=== PATIENT | male | born 1965 | race Caucasian/White ===

== ENCOUNTER 2020-12-26 11:59 | Emergency (ER) | payer BC, OTHER ==
[~2020-12-26] VITALS: Ht 182.8 cm; Wt 110.3 kg
--- NOTE | 2020-12-26 12:09 | ED General ---
General Chief Complaint: Dizziness/Syncope Stated Complaint: SYNCOPE History of Present Illness Date Seen by Provider: Dec 26, 2020 Time Seen by Provider: 12:05 Initial Comments 55-year-old male presents with a brief syncopal event that happened today while he was at work. Patient reports that he was outside working in the heat yesterday that yesterday afternoon he felt dizzy once a day. Ronda like the symptoms were worse if he stood up or moved. Patient reports he was at work today when he Ronda faint and had a brief syncopal event. He recalls events just prior and right after the syncope event. He denies any other symptoms such as chest pain, shortness of breath, fever, chills, headache, focal weakness, nausea vomiting. Patient with no symptoms upon arrival Allergies and Home Medications Allergies Coded Allergies: No Known Drug Allergies (Unverified , 12/26/20) Patient Home Medication List Home Medication List Reviewed: Yes Review of Systems Review of Systems Constitutional: No chills; dizziness; No fever EENTM: no symptoms reported Respiratory: No cough, No short of breath Cardiovascular: No chest pain, No edema, No palpitations; syncope Gastrointestinal: No abdominal pain, No nausea, No vomiting Genitourinary: no symptoms reported Musculoskeletal: no symptoms reported Psychiatric/Neurological: No Symptoms Reported Past Evyddzc-Jnqyoa-Rxulac Hx Past Med/Social Hx: Reviewed Nursing Past Med/Soc Hx Physical Exam Vital Signs Vital Signs - First Documented 12/26/20 12:02 Temp 36.6 Pulse 85 Resp 16 B/P (MAP) 169/89 (115) Pulse Ox 98 O2 Delivery Room Air Capillary Refill : Height, Weight, BMI Height: '" Weight: lbs. oz. kg; BMI Method: General Appearance: No Apparent Distress, WD/WN HEENT: PERRL/EOMI, Moist Mucous Membranes Neck: Non Tender, Supple Respiratory: Lungs Clear, Normal Breath Sounds Cardiovascular: Regular Rate, Rhythm, No Edema Gastrointestinal: Non Tender, Soft Back: No CVA Tenderness Extremity: Normal Capillary Refill, Normal Inspection, Normal Range of Motion Neurologic/Psychiatric: Alert, Oriented x3, No Motor/Sensory Deficits, Normal Mood/Affect, health workers II-XII Norm as Tested Skin: Normal Color, Warm/Dry Progress/Results/Core Measures Suspected Sepsis SIRS Temperature: Pulse: Respiratory Rate: Laboratory Tests 12/26/20 12:12: White Blood Count 8.0 Blood Pressure / Mean: Laboratory Tests 12/26/20 12:12: Creatinine 1.15, Platelet Count 271, Total Bilirubin 1.5H Results/Orders Lab Results Laboratory Tests Test 12/26/20 12:12 12/26/20 12:21 Range/Units White Blood Count 8.0 4.3-11.0 10^3/uL Red Blood Count 5.56 4.35-5.85 10^6/uL Hemoglobin 16.6 13.3-17.7 G/DL Hematocrit 48 40-54 % Mean Corpuscular Volume 86 80-99 FL Mean Corpuscular Hemoglobin 30 25-34 PG Mean Corpuscular Hemoglobin Concent 35 32-36 G/DL Red Cell Distribution Width 13.1 10.0-14.5 % Platelet Count 271 130-400 10^3/uL Mean Platelet Volume 10.6 H 7.4-10.4 FL Immature Granulocyte % (Auto) 0 % Neutrophils (%) (Auto) 61 42-75 % Lymphocytes (%) (Auto) 30 12-44 % Monocytes (%) (Auto) 7 0-12 % Eosinophils (%) (Auto) 1 0-10 % Basophils (%) (Auto) 1 0-10 % Neutrophils # (Auto) 4.8 1.8-7.8 X 10^3 Lymphocytes # (Auto) 2.4 1.0-4.0 X 10^3 Monocytes # (Auto) 0.6 0.0-1.0 X 10^3 Eosinophils # (Auto) 0.1 0.0-0.3 10^3/uL Basophils # (Auto) 0.1 0.0-0.1 10^3/uL Immature Granulocyte # (Auto) 0.0 0.0-0.1 10^3/uL Sodium Level 140 135-145 MMOL/L Potassium Level 3.7 3.6-5.0 MMOL/L Chloride Level 105 98-107 MMOL/L Carbon Dioxide Level 23 21-32 MMOL/L Anion Gap 12 5-14 MMOL/L Blood Urea Nitrogen 14 7-18 MG/DL Creatinine 1.15 0.60-1.30 MG/DL Estimat Glomerular Filtration Rate > 60 BUN/Creatinine Ratio 12 Glucose Level 108 H 70-105 MG/DL Calcium Level 9.7 8.5-10.1 MG/DL Corrected Calcium 9.5 8.5-10.1 MG/DL Magnesium Level 2.0 1.6-2.4 MG/DL Total Bilirubin 1.5 H 0.1-1.0 MG/DL Aspartate Amino Transf (AST/SGOT) 20 5-34 U/L Alanine Aminotransferase (ALT/SGPT) 19 0-55 U/L Alkaline Phosphatase 54 40-136 U/L Troponin I < 0.30 <0.30 NG/ML C-Reactive Protein < 0.30 <0.50 MG/DL Total Protein 7.2 6.4-8.2 GM/DL Albumin 4.3 3.2-4.5 GM/DL Glucometer 103 70-110 MG/DL My Orders Orders - EARL,SADAF L DO Cbc With Automated Diff (12/26/20 12:09) Comprehensive Metabolic Panel (12/26/20 12:09) Magnesium (12/26/20 12:09) Ua Culture If Indicated (12/26/20 12:09) Accucheck Stat ONCE (12/26/20 12:09) Ed Iv/Invasive Line Start (12/26/20 12:09) Ekg Tracing (12/26/20 12:09) Monitor-Rhythm Ecg Trace Only (12/26/20 12:09) Troponin I Fs (12/26/20 12:09) Lactated Ringers (Lr 1000 Ml Iv Solution (12/26/20 12:11) Chest 1 View Ap/Pa Only (12/26/20 12:16) Crp Fs (12/26/20 12:12) Vital Signs/I&O 12/26/20 12:02 Temp 36.6 Pulse 85 Resp 16 B/P (MAP) 169/89 (115) Pulse Ox 98 O2 Delivery Room Air Capillary Refill : Progress Note : Progress Note Patient with negative labs EKG and exam. Discussed with him that syncope is often difficult to find the cause. Recommended he establish care with a primary care provider and has a cardiology outpatient follow-up. Patient voiced underst anding and agreement. Patient stable will be discharged ECG Initial ECG Impression Date: Dec 26, 2020 Initial ECG Impression Time: 12:03 Initial ECG Rhythm: Normal Sinus Initial ECG Intervals: Normal Initial ECG Impression: Normal Diagnostic Imaging Diagonstic Imaging: Xray Plain Films/CT/US/NM/MRI: chest Comments Date of Exam:12/26/20 CHEST 1 VIEW AP/PA ONLY EXAMINATION: Portable erect AP chest at 12:10 p.m. INDICATION: Syncope. There are no prior studies available for comparison. The heart size is within normal limits. The lungs are clear. There is no sign of failure, pneumonia or pleural effusion. The mediastinum is not widened. The osseous structures are intact. External cardiac monitoring electrodes are noted. IMPRESSION: There is no evidence for active disease. Departure Impression Primary Impression: Syncope Qualified Codes: R55 - Syncope and collapse Disposition: HOME, SELF-CARE Condition: Stable Departure-Patient Inst. Referrals: NO,LOCAL PHYSICIAN (PCP/Family) Primary Care Physician Patient Instructions: Syncope (Fainting) (DC) Add. Discharge Instructions: Please establish care with a primary care provider of your choice and follow-up with outpatient cardiology for further evaluation All discharge instructions reviewed with patient and/or family. Voiced understanding. SADAF EARL DO Dec 26, 2020 12:09
[2020-12-26] MEDS ORDERED: LACTATED RINGERS 1,000 ML IV STA (12:11)
[2020-12-26 12:25] LABS: HEMATOCRIT 48 % (40-54); HEMOGLOBIN 16.6 G/DL (13.3-17.7); MEAN CORPUSCULAR HEMOGLOBIN 30 PG (25-34); MEAN CORPUSCULAR HGB CONC 35 G/DL (32-36); MEAN CORPUSCULAR VOLUME 86 FL (80-99)
[2020-12-26 12:26] LABS: BASOPHILS # (AUTO) 0.1 10^3/uL (0.0-0.1); BASOPHILS % (AUTO) 1 % (0-10); EOSINOPHILS # (AUTO) 0.1 10^3/uL (0.0-0.3); EOSINOPHILS % (AUTO) 1 % (0-10); LYMPHOCYTES # (AUTO) 2.4 X 10^3 (1.0-4.0); LYMPHOCYTES % (AUTO) 30 % (12-44); MEAN PLATELET VOLUME 10.6 FL (7.4-10.4); MONOCYTES # (AUTO) 0.6 X 10^3 (0.0-1.0); MONOCYTES % (AUTO) 7 % (0-12); NEUTROPHILS # (AUTO) 4.8 X 10^3 (1.8-7.8); NEUTROPHILS % (AUTO) 61 % (42-75); PLATELET COUNT 271 10^3/uL (130-400)
--- NOTE | 2020-12-26 12:33 | Diagnostic Imaging Report ---
EXAMINATION: Portable erect AP chest at 12:10 p.m. INDICATION: Syncope. There are no prior studies available for comparison. The heart size is within normal limits. The lungs are clear. There is no sign of failure, pneumonia or pleural effusion. The mediastinum is not widened. The osseous structures are intact. External cardiac monitoring electrodes are noted. IMPRESSION: There is no evidence for active disease. Dictated by: Dictated on workstation # [id number]
[2020-12-26 12:46] LABS: ALKALINE PHOSPHATASE 54 U/L (40-136); BILIRUBIN,TOTAL 1.5 MG/DL (0.1-1.0); BUN/CREATININE RATIO 12; CALCIUM 9.7 MG/DL (8.5-10.1); CARBON DIOXIDE 23 MMOL/L (21-32); CHLORIDE 105 MMOL/L (98-107); CREATININE SERUM 1.15 MG/DL (0.60-1.30); GFR ESTIMATED > 60; GLUCOSE 108 MG/DL (70-105); POTASSIUM 3.7 MMOL/L (3.6-5.0); SODIUM 140 MMOL/L (135-145)
[2020-12-26 12:47] LABS: ALANINE AMINOTRANSFERASE 19 U/L (0-55); ALBUMIN 4.3 GM/DL (3.2-4.5); TOTAL PROTEIN 7.2 GM/DL (6.4-8.2)
[2020-12-26 13:29] VITALS: BP 133/87
[2020-12-26 13:30] LABS: BILIRUBIN,URINE NEGATIVE (NEGATIVE); CLARITY,URINE CLEAR; COLOR,URINE YELLOW; GLUCOSE, URINE (UA) NEGATIVE (NEGATIVE); KETONES,URINE NEGATIVE (NEGATIVE); LEUKOCYTE ESTERASE ,URINE NEGATIVE (NEGATIVE); NITRITE,URINE NEGATIVE (NEGATIVE); PROTEIN,URINE NEGATIVE (NEGATIVE)
[2020-12-26 13:31] LABS: BACTERIA,URINE NEGATIVE /HPF; WBC,URINE RARE /HPF
[2020-12-26] MEDS ORDERED: CETI10CA PO (13:57)
[2020-12-26] MEDS ORDERED: MULT-1061 PO (13:57)
[2020-12-26] MEDS ORDERED: Fish Oil (13:57)
[2020-12-26] MEDS ORDERED: Melatonin (13:57)
== END 2020-12-26 13:29 | disposition home or self-care (01) ==
LOC: ER FS 12:00
DX: R55 Syncope and collapse (principal)
CPT/HCPCS: 36415; 71045; 80053; 81000; 82947; 83735; 84484; 85025; 86141; 93005; 93041

== ENCOUNTER → 2021-02-15 | Outpatient (CLI) | payer SELFPAY ==
[~2021-02-15] MED LIST: CETI10CA PO; Fish Oil; MULT-1061 PO; Melatonin
--- NOTE | 2021-02-15 12:08 | Diagnostic Imaging Report ---
EXAMINATION: CT calcium scoring without contrast. TECHNIQUE: Multiple contiguous axial images were obtained through the chest without the use of intravenous contrast for purposes of calcium scoring. All CT scans use one or more of the following dose optimizing techniques: Automated exposure control, MA and/or KvP adjustment based on patient size and exam type or iterative reconstruction. HISTORY: FAMILY HX OF ISCHEMIC HEART DISEASE. COMPARISON: None available. FINDINGS: The calculated coronary artery calcium score is 1.0. There is no edema or pneumonia. No pleural effusion. No pneumothorax. No suspicious nodules. Heart size is normal. No pericardial effusion. Aorta is normal in caliber. There is no axillary or supraclavicular lymphadenopathy. There is no mediastinal lymphadenopathy. Limited views of the upper abdomen are unremarkable. There are no suspicious osseous lesions. IMPRESSION: 1. Calculated coronary artery calcium score of 1.0 placing the patient below the 25th percentile. Dictated by: Dictated on workstation # [id number]
== END ==
LOC: RAD FS 11:01
PROVIDERS: ATTEND Family Medicine
DX: Z82.49 Family history of ischemic heart disease and other diseases of the circulatory system (principal)
CPT/HCPCS: 75571

== ENCOUNTER → 2021-02-15 | Outpatient (CLI) | payer BC ==
[2021-02-15 08:17] LABS: CREATININE SERUM 1.19 MG/DL (0.60-1.30); POTASSIUM 4.1 MMOL/L (3.6-5.0)
[2021-02-15 08:18] LABS: ALBUMIN 4.2 GM/DL (3.2-4.5); BILIRUBIN,TOTAL 2.1 MG/DL (0.1-1.0); CALCIUM 9.4 MG/DL (8.5-10.1); TOTAL PROTEIN 7.3 GM/DL (6.4-8.2)
== END ==
LOC: LAB FS 07:02
PROVIDERS: ATTEND Family Medicine
DX: Z00.00 Encounter for general adult medical examination without abnormal findings (principal)
CPT/HCPCS: 36415; 80053; 80061; G0103; 84153

== ENCOUNTER 2021-03-13 05:35 | Outpatient (CLI) | payer BC ==
[~2021-03-13] VITALS: Ht 185.4 cm; Wt 111.1 kg
[2021-03-13] MEDS ORDERED: OMG1KC PO (13:06)
[2021-03-13] MEDS ORDERED: TMSL.4C PO (13:06)
== END 2021-03-13 14:14 | disposition home or self-care (01) ==
LOC: PREOP 05:35
PROVIDERS: ATTEND Surgery
DX: Z01.818 Encounter for other preprocedural examination (principal)

== ENCOUNTER 2021-03-20 06:51 | Day surgery (SDC) | payer BC ==
[~2021-03-20] VITALS: Ht 185.4 cm; Wt 111.1 kg
[~2021-03-20 06:51] MED LIST changes: +OMG1KC PO; +TMSL.4C PO
[2021-03-20 07:10] VITALS: BP 129/63
[2021-03-20] MEDS ORDERED: LACTATED RINGERS 1,000 ML IV ONE (07:10)
[2021-03-20] MEDS ORDERED: LACTATED RINGERS 1,000 ML IV STA (07:37)
[2021-03-20] MEDS ORDERED: MIDAZOLAM 2 MG/2 ML (VERSED) VIAL ONE (08:12)
[2021-03-20] MEDS ORDERED: PROPOFOL INJECTION 50 ML IV ONE (08:12)
[2021-03-20 08:45] VITALS: BP 119/78
--- NOTE | 2021-03-20 08:46 | Progress Note-Post Operative ---
Post-Operative Progess Note Surgeon (s)/Grounds Manager (s) Surgeon ALEXIS BIRCH DO Grounds Manager: Any [place] Pre-Operative Diagnosis Screening Colonoscopy Post-Operative Diagnosis Cecal polyp Diverticula int hemorrhoids Procedure & Operative Findings Date of Procedure 03/20/21 Procedure Performed/Findings Colonoscopy with hot bx PROCEDURE NOTE: After informed consent was obtained, the patient was brought to the endoscopy suite, placed in bed in left lateral decubitus position. He was administered IV sedation by the CAMPUS ADMINISTRATIVE ASSISTANT who then monitored his vitals the entire time, heart rate, blood pressure and pulse ox and the scope was inserted, pushed all the way to about 160 cm and pushed into the cecum, took a picture of appendiceal orifice and noted a polpy right next to the opening. Elected to do a hot biopsy of this and then took a picture of the ileo-cecal valve. Next started slowly withdrawing the scope insufflating to look circumferentially at the calvo; starting in the cecum, up the ascending colon (where I noted one small diverticula) to the hepatic flexure, then down the transverse colon. Continued to the splenic flexure and into the descending colon, down in the sigmoid (saw a couple more small diverticula through here) and then into the rectal vault and retroflexed the scope. Took picture of the internal hemorrhoids. The patient tolerated the procedure. He was recovered in endoscopy suite. Anesthesia Type IV sedation by CAMPUS ADMINISTRATIVE ASSISTANT Estimated Blood Loss Estimated blood loss (mL): scant Specimens/Packing Specimens Removed cecal polyp ALEXIS BIRCH DO Mar 20, 2021 08:46
--- NOTE | 2021-03-20 08:47 | Endoscopy Discharge Instruct ---
Endo Procedure/Findings Findings 1.: Polyp 2.: Diverticulosis 3.: Internal Hemorrhoids Discharge Instructions - Activity: You might feel a little sleepy until tomorrow. This is due to the medicine you received to relax you. Until tomorrow, you should: NOT drive a car, operate machinery or power tools. NOT drink any alcoholic beverages. NOT make any important decisions or sign importortant papers. Do not return to work until tomorrow, unless otherwise instructed. Resume previous activities tomorrow. Diet: Start by taking liquids. If you tolerate liquids, advance to solid food. 1.: Colonscopy in 5 years Notify Physician - If you experience excessive bleeding, unusual abdominal pain, fever, or chest pain, contact your doctor immediately. ALEXIS BIRCH DO Mar 20, 2021 08:47
[2021-03-20 08:50] VITALS: BP_SYST 120; BP_SYST 128; BP_DIAS 74; BP_DIAS 81
[2021-03-20 09:13] VITALS: BP 138/94
[2021-03-20 09:14] VITALS: BP 138/94
--- NOTE | 2021-03-20 13:08 | Anesthesia-General Post-Op ---
MAC Patient Condition Mental Status/LOC: Same as Preop Cardiovascular: Satisfactory Nausea/Vomiting: Absent Respiratory: Satisfactory Pain: Controlled Complications: Absent Post Op Complications Complications None Follow Up Care/Instructions Patient Instructions None needed. Anesthesiology Discharge Order Discharge Order Patient is doing well, no complaints, stable vital signs, no apparent adverse anesthesia problems. No complications reported per nursing. CELINE SEALS CRNA Mar 20, 2021 13:08
== END 2021-03-20 09:19 | disposition home or self-care (01) ==
LOC: ENDO 06:51
PROVIDERS: ATTEND Surgery
DX: Z12.11 Encounter for screening for malignant neoplasm of colon (principal); D12.0 Benign neoplasm of cecum; K57.30 Diverticulosis of large intestine without perforation or abscess without bleeding; K64.8 Other hemorrhoids; Z80.42 Family history of malignant neoplasm of prostate; Z80.0 Family history of malignant neoplasm of digestive organs; J30.2 Other seasonal allergic rhinitis; Z79.899 Other long term (current) drug therapy

== ENCOUNTER → 2022-01-01 | Outpatient (CLI) | payer BC ==
[2022-01-01 09:27] LABS: CREATININE SERUM 1.16 MG/DL (0.60-1.30)
[2022-01-01 09:28] LABS: ALBUMIN 4.2 GM/DL (3.2-4.5); BILIRUBIN,TOTAL 1.4 MG/DL (0.1-1.0); CALCIUM 9.2 MG/DL (8.5-10.1); TOTAL PROTEIN 7.1 GM/DL (6.4-8.2)
== END ==
LOC: LAB FS 07:54
PROVIDERS: ATTEND Family Medicine
DX: Z00.00 Encounter for general adult medical examination without abnormal findings (principal)
CPT/HCPCS: 36415; 80053; 80061